=== PATIENT | male | born 1970 | race Caucasian/White ===

== ENCOUNTER 2016-05-14 20:14 | Emergency (ER) | payer OTHER ==
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
[2016-05-14] MEDS ORDERED: MOTRIN PO ONE (22:36)
[2016-05-14 23:41] VITALS: BP 128/64
== END 2016-05-15 00:25 | disposition home or self-care (01) ==
LOC: ED 20:14
DX: M25.512 Pain in left shoulder (principal); V89.2XXA Person injured in unspecified motor-vehicle accident, traffic, initial encounter; Y93.89 Activity, other specified; Y99.8 Other external cause status; Y92.89 Other specified places as the place of occurrence of the external cause
CPT/HCPCS: 99282